=== PATIENT | female | born 1930 | race Caucasian/White ===

== ENCOUNTER → 2016-12-31 | Outpatient (CLI) | payer OTHER, MEDICARE ==
[~2016-12-31] MED LIST: ACET1TAB84 PO; ASPI81TA28 PO; ATOR-24 PO; CITA10TA4 PO; CYCL0.052 OPB; DABI150C PO; HYDR-5688 PO; HYDR12.55 PO; LOSA50TA6 PO; LPR50X PO; MULT-190 PO; NRN300 PO; PANT40TA2 PO; PRED1SUS3 OPR
[2016-12-31 15:06] LABS: HEMATOCRIT 36.5 % (37-47); MEAN CELL VOLUME 80.8 fL (80-100); MEAN CORPUSCULAR HEMOGLOBIN 24.8 pg (25-34); MEAN CORPUSCULAR HGB CONC 30.7 g/dl (32-36); MEAN PLATELET VOLUME 11.7 fL (7.4-10.4); PLATELET COUNT 207 K/uL (130-400); RED BLOOD COUNT 4.52 M/uL (4.2-5.4); WHITE BLOOD COUNT 6.15 K/uL (4.8-10.8)
[2016-12-31 15:35] LABS: ALB/GLOB RATIO 0.9 (0.9-2); ALT/SGPT 20 U/L (12-78); AST/SGOT 25 U/L (15-37); BLOOD UREA NITROGEN 13 mg/dl (7-18); BUN/CREATININE RATIO 12.1 (10-20); CALCIUM 8.3 mg/dl (8.5-10.1); CARBON DIOXIDE 31 mmol/L (21-32); CHLORIDE 104 mmol/L (98-107); GLUCOSE 103 mg/dl (70-99); POTASSIUM 3.4 mmol/L (3.5-5.1); SODIUM 142 mmol/L (136-145)
[2016-12-31 15:36] LABS: ALKALINE PHOSPHATASE 68 U/L (45-117)
== END | disposition home or self-care (01) ==
LOC: C.LAB1850 14:20
PROVIDERS: ATTEND Physician Assistant
DX: E78.5 Hyperlipidemia, unspecified (principal); I48.92 Unspecified atrial flutter; I25.10 Atherosclerotic heart disease of native coronary artery without angina pectoris; I10 Essential (primary) hypertension; I47.1 Supraventricular tachycardia; R60.9 Edema, unspecified

== ENCOUNTER → 2017-04-07 | Outpatient (CLI) | payer OTHER, MEDICARE ==
[2017-04-07 15:19] LABS: BLOOD UREA NITROGEN 17 mg/dl (7-18); CALCIUM 9.2 mg/dl (8.5-10.1); CARBON DIOXIDE 30 mmol/L (21-32); CREATININE 1.07 mg/dl (0.60-1.20); GLUCOSE 97 mg/dl (70-99); POTASSIUM 4.3 mmol/L (3.5-5.1); SODIUM 140 mmol/L (136-145)
== END | disposition home or self-care (01) ==
LOC: C.LAB1850 12:31
PROVIDERS: ATTEND Physician Assistant
DX: R60.9 Edema, unspecified (principal)

== ENCOUNTER → 2017-04-29 | Outpatient (CLI) | payer OTHER, MEDICARE ==
[2017-04-29 10:32] LABS: BLOOD UREA NITROGEN 18 mg/dl (7-18); CARBON DIOXIDE 30 mmol/L (21-32); CREATININE 1.04 mg/dl (0.60-1.20); GLUCOSE 101 mg/dl (70-99); POTASSIUM 3.9 mmol/L (3.5-5.1); SODIUM 139 mmol/L (136-145)
== END | disposition home or self-care (01) ==
LOC: C.LABBC 08:47
PROVIDERS: ATTEND Physician Assistant
DX: R60.9 Edema, unspecified (principal)

== ENCOUNTER → 2017-05-24 | Outpatient (CLI) | payer OTHER, MEDICARE ==
[2017-05-24 18:26] LABS: BLOOD UREA NITROGEN 17 mg/dl (7-18); CALCIUM 9.3 mg/dl (8.5-10.1); CARBON DIOXIDE 32 mmol/L (21-32); GLUCOSE 97 mg/dl (70-99); POTASSIUM 3.9 mmol/L (3.5-5.1); SODIUM 139 mmol/L (136-145)
== END | disposition home or self-care (01) ==
LOC: C.LABMFLN 12:33
PROVIDERS: ATTEND Internal Medicine Cardiovascular Disease
DX: I48.92 Unspecified atrial flutter (principal); I11.0 Hypertensive heart disease with heart failure; I25.10 Atherosclerotic heart disease of native coronary artery without angina pectoris; I48.0 Paroxysmal atrial fibrillation; I50.32 Chronic diastolic (congestive) heart failure